=== PATIENT | female | born 1980 | race Caucasian/White ===

== ENCOUNTER 2019-06-16 08:58 | Emergency (ER) | payer MEDICARE, MEDICAID, SELFPAY ==
[2019-06-16 09:07] VITALS: BP 131/96; PULSE 102; RESP 19; TEMP 37.4; O2SAT 100
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
== END 2019-06-16 09:54 | disposition home or self-care (01) ==
PROVIDERS: Emergency Provider Emergency Medicine
DX: F07.81 Postconcussional syndrome (principal); I10 Essential (primary) hypertension; F17.200 Nicotine dependence, unspecified, uncomplicated; V49.60XA Unspecified car occupant injured in collision with unspecified motor vehicles in traffic accident, initial encounter
CPT/HCPCS: 99283

== ENCOUNTER 2020-02-26 11:46 | Emergency (ER) | payer MEDICARE, MEDICAID, SELFPAY ==
[2020-02-26] VITALS (11 sets, daily range): BP systolic 116–143; BP diastolic 75–86; PULSE 79–100; RESP 14–18; TEMP 36.8–37.1; O2SAT 94–100
--- NOTE | ~2020-02-26 | CT_ITS ---
EXAMINATION: CT brain wo con DATE: 02/26/2020 13:32 INDICATION: Headache and fever TECHNIQUE: Computed tomography (CT) of the head was performed without intravenous contrast. Sagittal and coronal reconstructions were performed. The mA was adjusted according to patient size. Iterative reconstruction technique was employed. The dose-length product was 605.33 mGy-cm. COMPARISON: head CT dated 09/05/2014 FINDINGS: No acute intracranial hemorrhage, acute infarction or abnormal extra axial fluid collection. Ventricl es are normal and symmetric. No mass/mass effect. The orbits, paranasal sinuses and mastoid air cells are normal. IMPRESSION: 1. Normal head CT. Reviewed, dictated and finalized at location A. IMPRESSION: 1. Normal head CT.
--- NOTE | ~2020-02-26 | CT_ITS ---
EXAMINATION: CT cervical spine wo con DATE: 02/26/2020 13:32 INDICATION: Neck pain and headache TECHNIQUE: Computed tomography (CT) of the cervical spine was performed without intravenous contrast. Automated exposure control and iterative reconstruction technique were employed. The dose-length pro duct was 365.41 mGy-cm. COMPARISON: None FINDINGS: Straightening of the normal cervical lordosis which could be positional or secondary to muscle spasm. No spondylolisthesis or facet subluxation. Vertebral body and disc heights are normal. No fracture. No significant facet or uncovertebral osteoarthritis. No central canal or neural foraminal stenosis. Enlarged multinodular and partially intrathoracic goiter. Visualized airway and apices of the lungs a re clear. IMPRESSION: 1. Straightening of the normal cervical lordosis. Otherwise normal cervical spine with no acute osseo us abnormality. 2. Goiter. Reviewed, dictated and finalized at location A. IMPRESSION: 1. Straightening of the normal cervical lordosis. Otherwise normal cervical spi ne with no acute osseous abnormality. 2. Goiter.
--- NOTE | 2020-02-26 13:01 | PC.NURSE ---
waqas julian notifed that huma is dr luther, and abcess has never been drained.
[2020-02-26 13:52] LABS: Basophils Absolute Auto 0.1 K/mm3 (0.0-0.1); Basophils Percent Auto 0.8 % (0.2-1.2); Eosinophils Absolute Auto 0.1 K/mm3 (0-0.3); Eosinophils Percent Auto 1.5 % (0-4.4); Hematocrit 39.6 % (37.0-47.0); Hemoglobin 13.2 g/dL (12.0-15.0); Immature Granulocyte Absolute 0.03 K/mm3 (0.00-0.031); Immature Granulocyte Percent A 0.3 % (0-0.5); Lymphocytes Absolute Auto 2.23 K/mm3 (0.9-3.2); Lymphocytes Percent Auto 25.6 % (18.3-44.2); Mean Corpuscular HGB Conc 33.3 g/dl (32-36); Mean Corpuscular Hemoglobin 29.1 pg (26-34); Mean Corpuscular Volume 87.2 fl (80-100); Mean Platelet Volume 11.9 fl (7.4-10.4); Monocytes Absolute Auto 0.6 K/mm3 (0.1-0.6); Monocytes Percent Auto 6.5 % (2.6-8.5); Neutrophils Absolute Auto 5.7 K/mm3 (1.3-6.7); Neutrophils Percent Auto 65.3 % (45.5-73.1); Platelet Count Result 288 k/mm3 (150-375); Red Blood Count 4.54 M/mm3 (4.2-5.4); Red Cell Distribution Width 14.3 % (11.5-14.5); White Blood Count 8.7 K/mm3 (4.5-10.0)
[2020-02-26] MEDS: SODIUM CHLORIDE 0.9% IV 1,000 ML 999 ML IV CONT (13:53)
[2020-02-26] MEDS: KETOROLAC 30 MG/ML VIAL (*BKC) IV PUSH (13:53)
[2020-02-26] MEDS: METOCLOPRAMIDE HCL INJ 10 MG/2 ML VIAL IV PUSH (13:53)
[2020-02-26] MEDS: diphenhydrAMINE HCl INJ 50 MG/ML VIAL 25 MG IV PUSH (13:54)
[2020-02-26 14:06] LABS: Anion Gap 5 mmol/L (8-16); Blood Urea Nitrogen 12 mg/dL (7-17); CRP < 0.5 mg/dL (<1.0); Calcium 8.5 mg/dL (8.4-10.2); Carbon Dioxide 21 mmol/L (22-30); Chloride 110 mmol/L (98-107); Estimated CRCL calculation 119 ml/min; Estimated Glomerular Filt Rate > 60; Glucose 100 mg/dL (65-105); Sodium 136 mmol/L (137-145)
[2020-02-26 14:27] LABS: Erythrocyte Sedimentation Rate 26 mm/hr (0-20)
--- NOTE | 2020-02-26 14:31 | ED.SKABFB ---
HPI - Skin/Abscess/Foreign Bdy General Chief complaint: Skin/Abscess/Foreign Body Stated complaint: abscess/exposure to meningitis Time Seen by Provider: 02/26/20 12:51 Source: patient Mode of arrival: ambulatory Limitations: no limitations History of Present Illness HPI narrative: This is a 39 year old female that presents to the ER for cyst to the left groin present for months. Reports she has been on multiple rounds of antibiotics for this. Reports it will intermittently get inflamed. Reports the area is tender again. Also reports a lump on her right breast for which she has been referred for a biopsy. Reports over the last week she has been having headache and neck pain. Reports there is a child that has been staying at her home that recently told her she had meningitis. Also reports fevers at home. Denies vision changes, vomiting, numbness, or weakness. Related Data Home Medications Medication Instructions Recorded Confirmed No Home Medications 02/26/20 Allergies Allergy/AdvReac Type Severity Reaction Status Date / Time hydrocodone AdvReac Mild Itching Verified 02/26/20 12:12 Review of Systems Review of Systems: Narrative: CONSTITUTIONAL: Reports fever EYES: Denies visual changes GASTROINTESTINAL: Denies vomiting SKIN: Denies rash MUSCULOSKELETAL: Reports joint pain, and myalgia. NEUROLOGIC: Reports headache. Denies numbness, or weakness. All systems reviewed & are unremarkable except as noted in HPI and below PMFSH Past Medical History Medical History (Updated 02/26/20 @ 16:26 by Bailey Gutierrez PA-C) History of anxiety History of depression History of hypertension Family History Family History (Updated 11/23/14 @ 11:16 by DOCTOR UNKNOWN) Other Asthma Cerebrovascular accident Depression Family history of Alzheimer's disease Family history of alcoholism Family history of arthritis Family history of attention deficit hyperactivity disorder (ADHD) Family history of chronic obstructive pulmonary disease Family history of lung disease Family history of mental disorder Family history of osteoporosis Social History Social History Smoking status: Current every day smoker Alcohol intake: current Gender identity (if verbalized by the patient): Female Exam Narrative: Exam Narrative: GENERAL: Well-appearing, well-nourished, and in no acute distress. HEAD: Normocephalic, atraumatic. EYES: PERRLA and EOMI. ENT: Nares clear, no rhinorrhea or epistaxis. Mucous membranes moist. Oropharynx without tonsillar hypertrophy exudate or other lesions. Bilateral TMs pearly arguello non-bulging NECK: Supple. No adenopathy or masses. Normal range of motion CHEST: Clear to auscultation. No respiratory distress. No wheezes rales or rhonchi HEART: Regular rate and rhythm. No murmur heard. Normal peripheral pulses. EXTREMITIES: Normal range of motion. No edema. SKIN: Warm, dry, no rash. NEURO: No focal deficits. Alert and oriented x3. Cranial nerves II through XII grossly intact. Normal [id number]. Normal [id number]. Negative Kernig and Brudzinski PSYCH: Normal mood and affect BREAST: Right breast with spongy, mobile cyst at the 9 o clock position Course Vital Signs Vital signs: Vital Signs Temperature 98.7 F 02/26/20 12:04 Pulse Rate 94 02/26/20 12:04 Respiratory Rate 14 02/26/20 12:04 Blood Pressure 143/86 H 02/26/20 12:04 Pulse Oximetry 100 02/26/20 12:04 Temperature 98.7 F 02/26/20 12:04 Pulse Rate 79 02/26/20 14:42 Respiratory Rate 18 02/26/20 14:42 Blood Pressure 116/85 02/26/20 14:42 Pulse Oximetry 98 02/26/20 14:42 Procedures Abscess I/D lower extremity: Date of Incision: 02/26/20 Time of Incision: 16:21 Side (if applicable): left Local Anesthetic: lidocaine 1% and with epi Amount of anesthesia used (mL): 2 Technique: incised with #11 blade Irrigation: No Packing used?: none I&
[2020-02-26] MEDS: LIDO 1%/EPINEPHRINE 1:100,000 20 ML VIAL INFILTRATE (16:23)
== END 2020-02-26 16:47 | disposition home or self-care (01) ==
PROVIDERS: Physician Assistant; Emergency Provider Family Medicine
DX: L72.3 Sebaceous cyst (principal); R51 Headache; F17.200 Nicotine dependence, unspecified, uncomplicated; E04.9 Nontoxic goiter, unspecified; N60.01 Solitary cyst of right breast
CPT/HCPCS: 10060; 36415; 70450; 72125; 80048; 81025; 85025; 85652; 86140; 96365; 96375; 99284; J0131; J1200; J1885; J2765; J7030

== ENCOUNTER → 2020-04-11 09:16 | Outpatient (CLI) | payer MEDICARE, MEDICAID, SELFPAY ==
--- NOTE | ~2020-04-11 | MMUS_ITS ---
EXAMINATION: MM diagnostic martínez BI w trace, US breast RT complete HISTORY: Palpable right breast abnormality. Breast calcifications. TECHNIQUE: Additional 3-D tomosynthesis images of the breasts were performed and synthetic 2-D images were generated. CAD analysis was submitted and interpreted. High resolution right breast ultrasound was performed. COMPARISON: None BREAST PARENCHYMAL COMPOSITION: The breasts are heterogenously dense, which may obscure small masses. FINDINGS: MAMMOGRAPHIC FINDINGS: In the area of palpable concern there is an oval circumscribed mass measuring 2.7 cm maximum dimensio n. There are clusters of indeterminate calcifications in the upper outer quadrant of both breasts, mi ddle third. ULTRASOUND: Limited right breast ultrasound: At 9:00, 3 cm from the nipple, there is an oval hypoechoic mass with parallel orientation, internal v ascularity and no posterior features measuring 2.8 x 2.8 x 1.3 cm. At 1:00, 4 cm from the nipple ther e is a 5 mm cyst. At 3-4:00, 5 cm from the nipple there is a 7 mm cyst. At 8:00, 6 cm from the nipple , there is a 6 mm complicated cyst. Focal IMPRESSION: 1. Clustered indeterminate bilateral breast calcifications in the upper outer quadrants. Stereotactic bilateral breast biopsy recommended. 2. Solid hypoechoic right breast mass at 9:00, 3 cm from the nipple measuring 2.8 cm maximum dimensio n. Ultrasound-guided right breast biopsy recommended. BI-RADS category 4, suspicious findings. Reviewed, dictated and finalized at location A. IMPRESSION: 1. Clustered indeterminate bilateral breast calcifications in the upper outer q uadrants. Stereotactic bilateral breast biopsy recommended. 2. Solid hypoechoic right breast mass at 9:00, 3 cm from the nipple measuring 2 .8 cm maximum dimension. Ultrasound-guided right breast biopsy recommended. BI-RADS category 4, suspicious findings.
== END ==
PROVIDERS: Visit Provider Obstetrics & Gynecology
DX: N63.15 Unspecified lump in the right breast, overlapping quadrants (principal)
CPT/HCPCS: 76641; 77062; 77066; G0279

== ENCOUNTER 2022-10-25 12:38 | Outpatient (CLI) | payer OTHER, SELFPAY ==
[2022-10-25 13:14] LABS: Basophils Absolute Auto 0.1 K/mm3 (0.0-0.1); Basophils Percent Auto 0.8 % (0.2-1.2); Eosinophils Absolute Auto 0.1 K/mm3 (0-0.3); Eosinophils Percent Auto 1.7 % (0-4.4); Hematocrit 38.5 % (37.0-47.0); Hemoglobin 12.8 g/dL (12.0-15.0); Immature Granulocyte Absolute 0.02 K/mm3 (0.00-0.031); Immature Granulocyte Percent A 0.3 % (0-0.5); Lymphocytes Absolute Auto 2.39 K/mm3 (0.9-3.2); Lymphocytes Percent Auto 31.4 % (18.3-44.2); Mean Corpuscular HGB Conc 33.2 g/dl (32-36); Mean Corpuscular Hemoglobin 29.8 pg (26-34); Mean Corpuscular Volume 89.7 fl (80-100); Mean Platelet Volume 11.3 fl (7.4-10.4); Monocytes Absolute Auto 0.5 K/mm3 (0.1-0.6); Monocytes Percent Auto 7.1 % (2.6-8.5); Neutrophils Absolute Auto 4.5 K/mm3 (1.3-6.7); Neutrophils Percent Auto 58.7 % (45.5-73.1); Platelet Count Result 299 k/mm3 (150-375); Red Blood Count 4.29 M/mm3 (4.2-5.4); Red Cell Distribution Width 13.7 % (11.5-14.5); White Blood Count 7.6 K/mm3 (4.5-10.0)
[2022-10-25 13:15] LABS: Appearance Urine Clear (Clear); Bilirubin Urine Negative (Negative); Blood Urine Negative (Negative); Color Urine Yellow (Yellow); Glucose Urine UA Negative (Negative); Ketones Urine Negative (Negative); Leukocyte Esterase Ur Negative LEU/UL (NEGATIVE); Nitrate Urine Negative (Negative); Protein Urine Negative (Negative); Specific Grav Ur 1.016 (1.001-1.035); Urobilinogen Urine 0.2 mg/dL (<2.0); pH Urine 5.5 (5.0-9.0)
[2022-10-25 13:18] LABS: Add Urine Microscopic? NO
[2022-10-25 13:27] LABS: Alanine Aminotransferase 18 U/L (6-35); Albumin Level 4.2 g/dL (3.5-5.1); Alkaline Phosphatase 53 U/L (38-126); Anion Gap 8 mmol/L (8-16); Aspartate Amino Transferase 17 U/L (14-36); Bilirubin,Total 0.4 mg/dL (0.2-1.3); Blood Urea Nitrogen 10 mg/dL (7-17); Calcium 8.6 mg/dL (8.4-10.2); Carbon Dioxide 24 mmol/L (22-30); Chloride 107 mmol/L (98-107); Cholesterol 176 mg/dL (0-200); Estimated Glomerular Filt Rate > 60; Glucose 102 mg/dL (65-110); HDL Direct 33 mg/dL; Potassium 3.8 mmol/L (3.4-5.0); Sodium 139 mmol/L (137-145); Triglycerides 258 mg/dL (<150)
[2022-10-25 13:37] LABS: LDL Cholesterol Direct 99 mg/dL
[2022-10-25 13:42] LABS: Vitamin D 25 Hydroxy 51.2 ng/mL
[2022-10-25 13:56] LABS: Hemoglobin A1C 5.1 % (<5.7); Thyroid Stimulating Hormone 0.647 uIU/mL (0.465-4.680)
[2022-10-28 21:23] LABS: Amphetamines NEGATIVE ng/mL (<500); Barbiturates NEGATIVE ng/mL (<300); Benzodiazepines NEGATIVE ng/mL (<100); Cocaine Metabolite NEGATIVE ng/mL (<150); Marijuana Metabolite NEGATIVE ng/mL (<20); Methadone Metabolite NEGATIVE ng/mL (<100); Opiates NEGATIVE ng/mL (<100); Oxidant NEGATIVE mcg/mL (<200); pH 5.6 (4.5-9.0)
== END 2022-10-25 12:39 | disposition home or self-care (01) ==
DX: Z01.89 Encounter for other specified special examinations (principal); Z79.899 Other long term (current) drug therapy
CPT/HCPCS: 36415; 80053; 80061; 80307; 81003; 82306; 82607; 83036; 84443; 85025

== ENCOUNTER 2023-06-23 11:04 | Emergency (ER) | payer MEDICARE, MEDICAID, SELFPAY ==
--- NOTE | ~2023-06-23 | XR_ITS ---
XR chest 2V DATE: 06/23/2023 12:46 INDICATION: Productive cough TECHNIQUE: AP and lateral views COMPARISON: 05/08/2017 two-view chest FINDINGS: Normal heart size. No hilar or mediastinal enlargement. No pulmonary infiltrate or consolid ation, pleural effusion or pulmonary vascular congestion or pneumothorax. IMPRESSION: No active cardiopulmonary disease Reviewed, dictated and finalized at location A. MINER
[2023-06-23 11:07] VITALS: BP 140/83; PULSE 97; RESP 16; TEMP 36.6; O2SAT 99
[2023-06-23 11:56] LABS: Influenza A QL RT-PCR Negative (Negative); Influenza B QL RT-PCR Negative (Negative); RSV RNA, RT-PCR Positive (Negative); SARS-CoV-2 RNA PCR Negative (Negative)
--- NOTE | 2023-06-23 12:37 | ED.URI ---
HPI - URI/Sore Throat General Chief Complaint: Upper Respiratory Infection Stated Complaint: Congestion,cough Time Seen by Provider: 06/23/23 11:47 History of Present Illness HPI Narrative: 42-year-old female reports for evaluation for productive cough x4 days. Patient states she began developing rhinorrhea today. 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 She also reports a sore throat and nasal congestion. She denies chest pain, shortness of breath, known fever, abdominal pain, otalgia. Patient states she smokes one oneil a day for the past 4 months. Related Data Allergies Allergy/AdvReac Type Severity Reaction Status Date / Time hydrocodone AdvReac Mild Itching Verified 06/23/23 11:20 Review of Systems Review of Systems: CONSTITUTIONAL: Denies fever, chills, or sweats. EYES: Denies visual changes, redness, or discharge. ENT: See HPI CARDIOVASCULAR: Denies chest pain, palpitations, or edema. RESPIRATORY: See HPI GASTROINTESTINAL: Denies abdominal pain, nausea, vomiting, or diarrhea. GENITOURINARY: Denies dysuria or hematuria. SKIN: Denies rash or itching. MUSCULOSKELETAL: Denies back pain, joint pain, or myalgia. NEUROLOGIC: Denies headache, numbness, or weakness. PSYCHIATRIC: Denies anxiety or depression. PMFSH Past Medical History Medical History History of anxiety History of depression History of hypertension Family History Family History Other Asthma Cerebrovascular accident Depression Family history of Alzheimer's disease Family history of alcoholism Family history of arthritis Family history of attention deficit hyperactivity disorder (ADHD) Family history of chronic obstructive pulmonary disease Family history of lung disease Family history of mental disorder Family history of osteoporosis Social History Social History Smoking status: Current every day smoker Alcohol intake: current Gender identity (if verbalized by the patient): Female Exam Narrative: GENERAL: Well-appearing, well-nourished, and in no acute distress. Patient resting comfortably in exam bed. She is satting 99% on room air. HEAD: Normocephalic, atraumatic. EYES: PERRLA and EOMI. ENT: Nares clear, no rhinorrhea or epistaxis. Mucous membranes moist. Posterior pharynx with mild erythema. No tonsillar hypertrophy or exudates. No edema. Uvula is midline. Bilateral TMs are arguello nonbulging. Normal canals. NECK: Supple. CHEST: No respiratory distress. Rhonchi throughout all lung zeng with wheezing in the left lung field. HEART: Regular rate and rhythm. No murmur heard. Normal peripheral pulses. ABDOMEN: Soft, nontender, nondistended, normal active bowel sounds. EXTREMITIES: Normal range of motion. No edema. SKIN: Warm, dry, no rash. NEURO: No focal deficits. Alert and oriented x3 Course Vital Signs Vital signs: Vital Signs Temperature 97.9 F 06/23/23 11:07 Pulse Rate 97 06/23/23 11:07 Respiratory Rate 16 06/23/23 11:07 Blood Pressure 140/83 06/23/23 11:07 Pulse Oximetry 99 06/23/23 11:07 Temperature 97.9 F 06/23/23 11:07 Pulse Rate 78 06/23/23 13:24 Respiratory Rate 18 06/23/23 13:24 Blood Pressure 140/83 06/23/23 11:07 Pulse Oximetry 99 06/23/23 11:07 MDM - URI/Sore Throat MDM Narrative Medical decision making narrative: 42-year-old female reports for evaluation for productive cough for 4 days. See HPI for further history. Vitals are stable. She is afebrile and satting 99% on room air. Exam is significant for the above. COVID and flu negative. RSV is positive. Chest x-ray shows no acute cardiopulmonary abnormality. Strep negative. Labs and imaging discussed with the patient. She received a DuoNeb with improvement. Plan to discharge her
[2023-06-23 13:15] VITALS: PULSE 75; RESP 18
[2023-06-23] MEDS: ALBUTEROL SULFATE NEB 2.5 MG/3 ML INH INHALATION (13:18)
[2023-06-23] MEDS: IPRATROPIUM BR 0.02% INH SOLN 0.5 MG/2.5 ML VIAL INHALATION (13:18)
[2023-06-23 13:24] VITALS: PULSE 78; RESP 18
[2023-06-23 13:38] LABS: Strep Group A RT-PCR NOT DETECTED (Negative)
== END 2023-06-23 14:09 | disposition home or self-care (01) ==
PROVIDERS: Emergency Medicine; Emergency Provider Physician Assistant
DX: J20.5 Acute bronchitis due to respiratory syncytial virus (principal); I10 Essential (primary) hypertension; F17.200 Nicotine dependence, unspecified, uncomplicated; Z20.822 Contact with and (suspected) exposure to COVID-19
CPT/HCPCS: 71046; 87637; 87651; 94640; 99283

== ENCOUNTER 2023-06-26 13:32 | Emergency (ER) | payer MEDICARE, MEDICAID, SELFPAY ==
[2023-06-26] VITALS (9 sets, daily range): BP systolic 100–155; BP diastolic 65–97; PULSE 78–116; RESP 19–26; TEMP 37.3–38.2; O2SAT 95–96
--- NOTE | ~2023-06-26 | CT_ITS ---
EXAMINATION: CTA chest PE protocol DATE: 06/26/2023 21:38 INDICATION: PE, elevated d-dimer TECHNIQUE: Computed tomography angiography (CTA) of the chest was performed with 100 mL Omnipaque-350 intravenous contrast timed to evaluate the pulmonary arteries. Coronal maximum intensity projection 3D-reconstructions were created by the technologist. The dose-length product (DLP) was 585.07 mGy-cm. Automated exposure control and iterative reconstruction technique were employed. COMPARISON: X-ray chest, same date. FINDINGS: Lung parenchyma and airways: Minimal dependent atelectasis/scar. Patchy areas of groundglass opacity in all lung lobes, most pronounced in the left upper lobe. Pleura: Unremarkable. Thoracic inlet, axillae and chest wall: Unremarkable. Thoracic aorta: Normal. Mediastinum: Normal. Heart and pericardium: Normal. Coronary artery calcifications: Absent. Upper abdomen: No significant finding. Bones: No acute osseous finding. Pulmonary arteries: Study quality: Adequate. No pulmonary emboli detected. IMPRESSION: No CT evidence of acute pulmonary embolus. Patchy bilateral ground glass opacities may represent edema or infection. Reviewed, dictated and finalized at location K. STRIAL ECOLOGY TECHNICIAN
--- NOTE | ~2023-06-26 | XR_ITS ---
EXAMINATION: XR chest 2V DATE: 06/26/2023 14:21 INDICATION: Shortness of breath and cough. TECHNIQUE: Frontal and lateral views of the chest were obtained. COMPARISON: Chest 2 views 06/23/2023 FINDINGS: The chest demonstrates clear lungs without pneumonia, pleural effusion, or pneumothorax. Th e heart size is normal. IMPRESSION: 1. No acute cardiopulmonary disease. Reviewed, dictated and finalized at location A. W MACHINE SET UP OPERATOR TOOL
--- NOTE | 2023-06-26 13:36 | ECG_ITS ---
Measurements Intervals Witter Rate: 118 P: 39 SD: 116 QRS: 54 QRSD: 80 T: 67 QT: 311 QTc: 436 Interpretive Statements SINUS TACHYCARDIA WITH SHORT SD INTERVAL NO PREVIOUS ECG AVAILABLE FOR COMPARISON Electronically Signed On 06-26-2023 15:08:43 VEST MAKER by Jeremie Tovar M.D.
[2023-06-26 13:55] LABS: Basophils Absolute Auto 0.1 K/mm3 (0.0-0.1); Basophils Percent Auto 0.3 % (0.2-1.2); Eosinophils Absolute Auto 0.1 K/mm3 (0-0.3); Eosinophils Percent Auto 0.6 % (0-4.4); Hematocrit 39.5 % (37.0-47.0); Hemoglobin 13.1 g/dL (12.0-15.0); Immature Granulocyte Absolute 0.08 K/mm3 (0.00-0.031); Immature Granulocyte Percent A 0.5 % (0-0.5); Lymphocytes Percent Auto 12.9 % (18.3-44.2); Mean Corpuscular HGB Conc 33.2 g/dl (32-36); Mean Corpuscular Hemoglobin 29.8 pg (26-34); Mean Corpuscular Volume 89.8 fl (80-100); Mean Platelet Volume 11.5 fl (7.4-10.4); Monocytes Absolute Auto 1.1 K/mm3 (0.1-0.6); Monocytes Percent Auto 7.4 % (2.6-8.5); Neutrophils Absolute Auto 12.1 K/mm3 (1.3-6.7); Neutrophils Percent Auto 78.3 % (45.5-73.1); Platelet Count Result 287 k/mm3 (150-375); Red Cell Distribution Width 13.2 % (11.5-14.5); White Blood Count 15.5 K/mm3 (4.5-10.0)
[2023-06-26 14:15] LABS: Alanine Aminotransferase 42 U/L (6-35); Alkaline Phosphatase 66 U/L (38-126); Anion Gap 12 mmol/L (8-16); Aspartate Amino Transferase 27 U/L (14-36); Bilirubin,Total 0.4 mg/dL (0.2-1.3); Blood Urea Nitrogen 12 mg/dL (7-17); Calcium 8.8 mg/dL (8.4-10.2); Carbon Dioxide 19 mmol/L (22-30); Chloride 105 mmol/L (98-107); Estimated CRCL calculation 118 ml/min; Estimated Glomerular Filt Rate > 60; Glucose 117 mg/dL (65-110); Potassium 3.5 mmol/L (3.4-5.0); Sodium 136 mmol/L (137-145)
[2023-06-26 18:33] LABS: NT Pro B Type Natriuretic Pept 324 pg/mL (19.9-100); Troponin I < 0.012 ng/mL (0.000-0.034)
--- NOTE | 2023-06-26 19:17 | ED.SOB ---
HPI - SOB/Dyspnea General Chief Complaint: Shortness of Breath/Dyspnea Stated Complaint: diff breathing Time Seen by Provider: 06/26/23 19:17 History of Present Illness HPI Narrative: Patient is a 42 year old female here with a cough and worsening shortness of breath. Her symptoms first began around 06/19 with productive cough, sore throat and nasal congestion. She was seen here on 06/23 when she was diagnosed with RSV. She notes worsening symptoms since that time and has since developed worsening shortness of breath. 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 She denies history of PE or DVT. Denies chest pain. Denies believe she has some regurgitation from one of her heart valves that she was doing monitoring for but believes that she has improved so is no longer having these monitors. She does believe that her breathing and cough initially improved with the breathing treatment that she did here in the ER on 06/23, she has been using her prescribed inhaler 1 puff, 4 times a day which seems to temporarily help her symptoms. She did complete prednisone course as well. She notes the last 2 days she has felt like her shortness of breath feels like she is drowning in her secretions and she is having difficulty coughing due to the pain in her chest. Last ibuprofen was taken about 2 hours ago. Related Data Allergies Allergy/AdvReac Type Severity Reaction Status Date / Time hydrocodone AdvReac Mild Itching Verified 06/23/23 11:20 COUNT INCLUDES THE [facility] Past Medical History Medical History History of anxiety History of depression History of hypertension Family History Family History Other Asthma Cerebrovascular accident Depression Family history of Alzheimer's disease Family history of alcoholism Family history of arthritis Family history of attention deficit hyperactivity disorder (ADHD) Family history of chronic obstructive pulmonary disease Family history of lung disease Family history of mental disorder Family history of osteoporosis Social History Social History Smoking status: Current every day smoker Alcohol intake: current Gender identity (if verbalized by the patient): Female Course Course Emergency Course: Chart review performed. Patient here with shortness of breath. RSV positive on Friday, increasing worsening shortness of breath. Vitals show tachycardia, tachypnea, fever of 100.8F. Note from 06/23/23 notes she had a productive cough for 4 days at that time. She was diagnosed with RSV. Had a negative CXR. Patient seen and evaluated. Non toxic appearing. Cardiac workup initiated in triage. Added on d-dimer given tachycardia and persistent exertional dyspnea. Lab work and imaging reviewed. WBC 15.5, D-dimer elevated 0.54, electrolytes normal. Initial troponin negative. BNP minimally elevated at 324. Will do PE study. Viral swab continues to be positive for RSV only. Pending repeat troponin/EKG and PE study. CT negative for PE, ground glass opacities concerning for edema versus infection in context of fever, cough and WBC of 15, will initiate coverage for Community Acquired Pneumonia. Repeat troponin negative. The results of pertinent diagnostic studies and exam findings were discussed. The patient?s provisional diagnosis and plan of care were discussed with the patient and present family. The patient and/or present family expressed understanding of the diagnosis and plan. The nurse was instructed to provide written instructions and appropriate follow-up information. The patient understands their need and responsibility to obtain additional follow-up as instructed. The risks of medications administered and prescribed were discussed with the patient and family present. Vital Signs Vital signs: Vital Signs Temperature
[2023-06-26 20:03] LABS: D Dimer 0.54 ug/mL (<0.48)
[2023-06-26] MEDS: HYDROcodone/acetaminophen (*CRX) 5-325 MG TABLET 1 TAB PO (20:19)
[2023-06-26 20:23] LABS: Influenza A QL RT-PCR Negative (Negative); Influenza B QL RT-PCR Negative (Negative); RSV RNA, RT-PCR Positive (Negative); SARS-CoV-2 RNA PCR Negative (Negative)
[2023-06-26] MEDS: ALBUTEROL SULFATE (*SP) AEROSOL 1 PUFF 2 PUFF INHALATION (21:11)
--- NOTE | 2023-06-26 21:41 | ECG_ITS ---
Measurements Intervals Fletcher Rate: 74 P: 45 CT: 174 QRS: 49 QRSD: 90 T: 55 QT: 396 QTc: 441 Interpretive Statements SINUS RHYTHM COMPARED TO ECG 06/26/2023 13:43:06 SINUS RHYTHM NOW PRESENT Electronically Signed On 06-27-2023 16:32:11 WELDER APPRENTICE ARC by Jeremie Tovar M.D.
[2023-06-26 22:23] LABS: Troponin I < 0.012 ng/mL (0.000-0.034)
[2023-06-26] MEDS: AMOXICILLIN/CLAVULANATE K 875-125 MG TAB 1 TABLET PO (22:31)
[2023-06-26] MEDS: DOXYCYCLINE HYCLATE 100 MG TABLET PO (22:31)
== END 2023-06-26 22:48 | disposition home or self-care (01) ==
PROVIDERS: Emergency Medicine; Physician Assistant; Emergency Provider Student in an Organized Health Care Education/Training Program; PCP Nurse Practitioner Family
DX: J21.0 Acute bronchiolitis due to respiratory syncytial virus (principal); J18.9 Pneumonia, unspecified organism; R07.89 Other chest pain; Z20.822 Contact with and (suspected) exposure to COVID-19; I10 Essential (primary) hypertension; F17.200 Nicotine dependence, unspecified, uncomplicated; R00.0 Tachycardia, unspecified
CPT/HCPCS: 36415; 71046; 71275; 80053; 83880; 84484; 85025; 85380; 87637; 93005; 94664; 99284; A9270; Q9967

== ENCOUNTER 2023-07-12 11:47 | Emergency (ER) | payer MEDICARE, MEDICAID, SELFPAY ==
[2023-07-12] VITALS (7 sets, daily range): BP systolic 107–119; BP diastolic 63–83; PULSE 87–107; RESP 18–24; TEMP 37.7; O2SAT 94–100
--- NOTE | ~2023-07-12 | CT_ITS ---
EXAMINATION: CTA chest PE protocol DATE: 07/12/2023 13:29 INDICATION: Chest pain and shortness of breath TECHNIQUE: Computed tomography angiography (CTA) of the chest was performed with 100 mL Omnipaque-350 intravenous contrast timed to evaluate the pulmonary arteries. Coronal maximum intensity projection 3D-reconstructions were created by the technologist. The dose-length product (DLP) was 1350.70 mGy-cm . Automated exposure control and iterative reconstruction technique were employed. COMPARISON: There is mild thoracic spondylosis. FINDINGS: The pulmonary arteries are well-opacified. No pulmonary embolism is identified. There are m inimal airspace opacities of the lingula. There are mild atelectasis and resolving airspace opacities in the lower lobes. No pleural effusion or pneumothorax. No pathologically enlarged thoracic lymph n odes are identified. The heart size is normal. IMPRESSION: 1. No pulmonary embolus identified. 2. Lingular airspace opacities, consistent with atelectasis and pneumonia. 3. Resolving pneumonia of the lower lobes. Reviewed, dictated and finalized at location A. DIRECTOR
--- NOTE | ~2023-07-12 | XR_ITS ---
EXAMINATION: XR chest 2V DATE: 07/12/2023 12:49 INDICATION: Generalized chest pain TECHNIQUE: PA and lateral views of the chest are obtained. COMPARISON: 06/26/2023 FINDINGS: There are patchy airspace opacities of the lung bases. No pleural effusion or pneumothorax. The cardiomediastinal silhouette is normal. There is mild thoracic spondylosis. IMPRESSION: 1. Bibasilar airspace opacities, consistent with pneumonia. Reviewed, dictated and finalized at location A. TRANSMISSION MECHANIC
--- NOTE | 2023-07-12 11:56 | ECG_ITS ---
Measurements Intervals Blessing Rate: 100 P: 32 AK: 144 QRS: 22 QRSD: 92 T: 30 QT: 353 QTc: 457 Interpretive Statements SINUS TACHYCARDIA BORDERLINE ECG COMPARED TO ECG 06/26/2023 22:01:41 SINUS TACHYCARDIA NOW PRESENT Electronically Signed On 07-12-2023 12:31:07 FILM TECHNICIAN by Zane Devi D.O.
[2023-07-12 12:19] LABS: Basophils Percent Auto 0.7 % (0.2-1.2); Eosinophils Percent Auto 0.4 % (0-4.4); Hematocrit 34.6 % (37.0-47.0); Hemoglobin 11.6 g/dL (12.0-15.0); Immature Granulocyte Absolute 0.01 K/mm3 (0.00-0.031); Immature Granulocyte Percent A 0.2 % (0-0.5); Lymphocytes Absolute Auto 0.42 K/mm3 (0.9-3.2); Lymphocytes Percent Auto 9.1 % (18.3-44.2); Mean Corpuscular HGB Conc 33.5 g/dl (32-36); Mean Corpuscular Hemoglobin 29.4 pg (26-34); Mean Corpuscular Volume 87.8 fl (80-100); Mean Platelet Volume 11.8 fl (7.4-10.4); Monocytes Absolute Auto 0.5 K/mm3 (0.1-0.6); Monocytes Percent Auto 11.5 % (2.6-8.5); Neutrophils Absolute Auto 3.6 K/mm3 (1.3-6.7); Neutrophils Percent Auto 78.1 % (45.5-73.1); Platelet Count Result 210 k/mm3 (150-375); Red Blood Count 3.94 M/mm3 (4.2-5.4); Red Cell Distribution Width 13.1 % (11.5-14.5); White Blood Count 4.6 K/mm3 (4.5-10.0)
--- NOTE | 2023-07-12 12:26 | ED.CHESTPAIN ---
HPI - Chest Pain General Chief Complaint: Chest Pain Stated Complaint: cp Time Seen by Provider: 07/12/23 11:50 History of Present Illness HPI narrative: Patient is a 42-year-old female presenting with chest pain. Patient states that she recently recovered from RSV. Yesterday she had a lot of doctors appointments for her daughter and when she got home she noticed a tickle in her throat and a stuffy nose. She woke up this morning and continued to have nasal congestion and she thought it was the flu. She then developed substernal chest pain that she describes as a spasm like or tightening pain. She thought it was indigestion so she drank baking soda twice and ate a handful of Tums. States fluid this did not help so she came in for evaluation. Currently, the discomfort has improved. States that she does feel short of breath and lightheaded. No leg swelling, nausea vomiting, abdominal pain, fevers. Related Data Allergies Allergy/AdvReac Type Severity Reaction Status Date / Time No Known Allergies Allergy Verified 07/12/23 11:55 Review of Systems Review of Systems: All systems reviewed & are unremarkable except as noted in HPI and below PMFSH Past Medical History Medical History History of anxiety History of depression History of hypertension Family History Family History Other Asthma Cerebrovascular accident Depression Family history of Alzheimer's disease Family history of alcoholism Family history of arthritis Family history of attention deficit hyperactivity disorder (ADHD) Family history of chronic obstructive pulmonary disease Family history of lung disease Family history of mental disorder Family history of osteoporosis Social History Social History Smoking status: Current every day smoker Alcohol intake: current Gender identity (if verbalized by the patient): Female Exam Narrative: GENERAL: nontoxic, in no acute distress, pleasant and coopeartive HEAD: Normocephalic, atraumatic. EYES: PERRLA and EOMI. ENT: +nasal congestion NECK: Supple. CHEST: Clear to auscultation. No respiratory distress. HEART: Tachycardic, regular rhythm ABDOMEN: Soft, nontender, nondistended EXTREMITIES: No edema. SKIN: Warm, dry, no rash. NEURO: Alert and oriented x3. PSYCH: Normal mood and affect. Course Vital Signs Vital signs: Vital Signs Temperature 99.9 F H 07/12/23 11:46 Pulse Rate 107 H 07/12/23 11:46 Respiratory Rate 18 07/12/23 11:46 Blood Pressure 107/63 07/12/23 11:46 Pulse Oximetry 94 07/12/23 11:46 Oxygen Delivery Room Air 07/12/23 11:46 Temperature 99.9 F H 07/12/23 11:46 Pulse Rate 92 07/12/23 16:53 Respiratory Rate 19 07/12/23 16:53 Blood Pressure 119/68 07/12/23 16:53 Pulse Oximetry 100 07/12/23 16:53 Oxygen Delivery Room Air 07/12/23 12:02 MDM - Chest Pain MDM Narrative Medical decision making narrative: a 42-year-old female presenting with chest pain, nasal congestion, lightheadedness. Patient is slightly tachycardic on arrival, otherwise vitals are within normal limits. EKG per my interpretation shows sinus tachycardia, no acute ischemic changes. Patient is positive for influenza A. Blood work with hypokalemia, this has been repleted orally. Troponins are undetectable x2. D-dimer elevated so CT PE ordered which shows no evidence of pulmonary embolus. She does have a resolving lower lobe pneumonia as well as a new lingular pneumonia. Suspect it is related to her new influenza infection. On re-evaluation, the patient states that she continues to have a headache and she just wants relief from this. She received IV Toradol and fluids earlier with some relief. Will trial migraine cocktail. Patient feels improved following the migraine cocktail.
[2023-07-12 12:29] LABS: Prothrombin Time 13.3 Seconds (11.1-14.7)
[2023-07-12 12:30] LABS: Alanine Aminotransferase 31 U/L (6-35); Albumin Level 3.3 g/dL (3.5-5.1); Alkaline Phosphatase 59 U/L (38-126); Anion Gap 3 mmol/L (8-16); Aspartate Amino Transferase 29 U/L (14-36); Bilirubin,Total 0.5 mg/dL (0.2-1.3); Blood Urea Nitrogen 10 mg/dL (7-17); Calcium 8.1 mg/dL (8.4-10.2); Carbon Dioxide 30 mmol/L (22-30); Chloride 104 mmol/L (98-107); Estimated CRCL calculation 120 ml/min; Estimated Glomerular Filt Rate > 60; Glucose 104 mg/dL (65-110); Lipase 35 U/L (23-300); Potassium 3.2 mmol/L (3.4-5.0); Sodium 137 mmol/L (137-145)
[2023-07-12 12:31] LABS: Partial Thromboplastin Time 28.4 SECONDS (22.3-36.8)
[2023-07-12 12:41] LABS: Troponin I < 0.012 ng/mL (0.000-0.034)
[2023-07-12] MEDS: SODIUM CHLORIDE 0.9% IV 1,000 ML 999 ML IV CONT ×2 (12:47→16:48)
[2023-07-12] MEDS: POTASSIUM CHLORIDE 20 MEQ ER TABLET 40 MEQ PO (12:48)
[2023-07-12 12:49] LABS: NT Pro B Type Natriuretic Pept 598 pg/mL (19.9-100)
[2023-07-12 13:18] LABS: Influenza A QL RT-PCR Positive (Negative); Influenza B QL RT-PCR Negative (Negative); RSV RNA, RT-PCR Negative (Negative); SARS-CoV-2 RNA PCR Negative (Negative)
[2023-07-12] MEDS: KETOROLAC 30 MG/ML VIAL (*BKC) IV PUSH (13:56)
--- NOTE | 2023-07-12 15:02 | ECG_ITS ---
Measurements Intervals [place] Rate: 94 P: 43 [place]: 163 QRS: 26 QRSD: 94 T: 37 QT: 368 QTc: 460 Interpretive Statements SINUS RHYTHM NORMAL ECG COMPARED TO ECG 07/12/2023 11:59:24 SINUS RHYTHM NOW PRESENT Electronically Signed On 07-12-2023 20:49:35 SCIENTIFIC TECHNICAL WRITER by Zane Devi D.O.
[2023-07-12 15:59] LABS: Troponin I < 0.012 ng/mL (0.000-0.034)
[2023-07-12] MEDS: ACETAMINOPHEN 500 MG TABLET 1000 MG PO (16:46)
[2023-07-12] MEDS: PROCHLORPERAZINE EDISYLATE 10 MG/2 ML VIAL IV PUSH (16:49)
[2023-07-12] MEDS: diphenhydrAMINE HCl INJ 50 MG/ML VIAL 25 MG IV PUSH (16:52)
== END 2023-07-12 18:29 | disposition home or self-care (01) ==
PROVIDERS: Emergency Medicine; Emergency Provider Emergency Medicine; PCP Nurse Practitioner Family
DX: J10.00 Influenza due to other identified influenza virus with unspecified type of pneumonia (principal); R07.89 Other chest pain; R51.9 Headache, unspecified; R06.02 Shortness of breath; Z20.822 Contact with and (suspected) exposure to COVID-19; I10 Essential (primary) hypertension; F17.200 Nicotine dependence, unspecified, uncomplicated; R00.0 Tachycardia, unspecified
CPT/HCPCS: 36415; 71046; 71275; 80053; 83690; 83880; 84484; 85025; 85380; 85610; 85730; 87637; 93005; 96361; 96374; 96375; 99284; A9270; J0780; J1200; J1885; J7030; Q9967